=== PATIENT | female | born 1970 | race African-American/Black ===

== ENCOUNTER 2021-04-11 13:23 | Emergency (ER) | payer MEDICAID, OTHER ==
[~2021-04-11] VITALS: Ht 170.2 cm; Wt 54.0 kg
--- NOTE | 2021-04-11 13:30 | NUR ---
TO ER BED 16, BIB SELF C/O LEFT LOWER ABDOMINAL PAIN X 1 WEEK, R LOWER BACK PAIN AND BURNING AND ITCHING UPON URINATION, AAOX4, BREATHING EVEN AND NON LABORED, PROVIDED WARM BLANKET, AWAITING MD GOMEZ
--- NOTE | 2021-04-11 13:30 | NUR ---
URINE SPECIMEN COLLECTED AND SENT TO LAB.
--- NOTE | 2021-04-11 14:00 | NUR ---
SALINE LOCK ESTABLISHED, BLOOD DRAWN AND PICKED UP BY LAB
[2021-04-11 14:18] LABS: BASOPHILS # (AUTO) 0.1 K/uL (0.0-0.2); BASOPHILS % (AUTO) 1.1 % (0.0-2.0); EOSINOPHILS % (AUTO) 2.3 % (0.0-6.0); HEMATOCRIT 37 % (33-45); HEMOGLOBIN 12.4 g/dL (11.5-14.8); LYMPHOCYTES # (AUTO) 1.9 K/uL (0.8-4.8); LYMPHOCYTES % (AUTO) 26.4 % (20.0-44.0); MEAN CORPUSCULAR HGB CONC 33 g/dl (31.0-36.0); MEAN CORPUSCULAR VOLUME 89 fL (82-100); MONOCYTES # (AUTO) 0.5 K/uL (0.1-1.30); MONOCYTES % (AUTO) 7.1 % (2.0-12.0); NEUTROPHILS # (AUTO) 4.6 K/uL (1.8-8.9); NEUTROPHILS % (AUTO) 63.1 % (43.0-81.0); PLATELET COUNT (AUTO) 258 K/uL (150-450); RED BLOOD CELL COUNT(AUTO) 4.19 MIL/uL (4.0-5.2); WHITE BLOOD COUNT (AUTO) 7.3 K/uL (4.3-11.0)
[2021-04-11 14:30] LABS: BILIRUBIN,URINE NEGATIVE (NEGATIVE); COLOR,URINE YELLOW (YELLOW); LEUKOCYTE ESTERASE ,URINE NEGATIVE (NEGATIVE); NITRITE, URINE NEGATIVE (NEGATIVE); PROTEIN,URINE NEGATIVE (NEGATIVE); UGLUCOSE NEGATIVE (NEGATIVE); UROBILINOGEN,URINE 0.2 EU/dL (0.2)
[2021-04-11 14:30] LABS: CARBON DIOXIDE 30 mmol/L (21-32); CHLORIDE 102 mmol/L (98-107); CREATININE 0.8 mg/dL (0.6-1.3); GLUCOSE 81 mg/dL (74-106); POTASSIUM 3.7 mmol/L (3.5-5.1); SODIUM SERUM 138 mmol/L (136-145); UREA NITROGEN, BLOOD 12 mg/dL (7-18)
[2021-04-11 14:36] LABS: ALANINE AMINOTRANSFERASE 22 U/L (12-78); ALBUMIN 3.9 g/dL (3.4-5.0); ALKALINE PHOSPHATASE 79 U/L (46-116); ASPARTATE AMINOTRANSFERASE 12 U/L (15-37); BILIRUBIN,DIRECT 0.1 mg/dL (0.0-0.2); BILIRUBIN,TOTAL 0.2 mg/dL (0.2-1.0); LIPASE 88 U/L (73-393); TOTAL PROTEIN, SERUM 7.5 g/dL (6.4-8.2)
--- NOTE | 2021-04-11 14:40 | NUR ---
TAKEN TO CT
[2021-04-11] MEDS ORDERED: FAMOTIDINE (20 MG) 20 MG TABLET ONE (14:43)
[2021-04-11 14:45] LABS: BACTERIA,URINE None seen /HPF (None Seen); SQUAMOUS EPITHELIAL CELL,UR Few /HPF (None Seen)
[2021-04-11] MEDS: FAMOTIDINE (20 MG) 20 MG TABLET PO ONE ×2 (14:51→14:53)
--- NOTE | 2021-04-11 14:51 | NUR ---
BACK FROM CT
[2021-04-11] MEDS ORDERED: AMOX/CLAVULANATE 875 MG TABLET ONE (15:49)
[2021-04-11] MEDS ORDERED: AMOX-430 PO (15:50)
[2021-04-11] MEDS ORDERED: AMOX/CLAVULANATE 875 MG TABLET PO ONE (16:00)
--- NOTE | 2021-04-11 16:09 | NUR ---
PHONE NUMBER OF PATIENT TO CALL FOR RESULTS [phone]
[2021-04-11 16:11] VITALS: BP 108/79
--- NOTE | 2021-04-11 16:11 | NUR ---
IV removed. Catheter intact and site benign. Pressure and 4x4 applied to site. No bleeding noted.Patient discharged to home in stable condition. Written and verbal after care instructions given. Patient verbalizes understanding of instruction.
== END 2021-04-11 16:12 | disposition home or self-care (01) ==
LOC: ER 13:39
DX: K52.9 Noninfective gastroenteritis and colitis, unspecified (principal); R00.2 Palpitations; R10.12 Left upper quadrant pain; R10.32 Left lower quadrant pain; R94.31 Abnormal electrocardiogram [ECG] [EKG]; F17.200 Nicotine dependence, unspecified, uncomplicated; Z88.0 Allergy status to penicillin; Z88.6 Allergy status to analgesic agent; Z60.2 Problems related to living alone
CPT/HCPCS: 36415; 71045-TC; 80048-TC; 80076-TC; 81001; 83690-TC; 84484-TC; 84703-TC; 85025-TC